=== PATIENT | male | born 1950 | race Hispanic/Latino ===

== ENCOUNTER 2021-12-22 13:00 | Inpatient (IN) | payer OTHER ==
[~2021-12-22] VITALS: Ht 175.3 cm; Wt 95.7 kg
[2022-01-06 09:42] LABS: BASOPHILS % (AUTO) 0.7 % (0.0-5.0); HEMATOCRIT 46.3 % (36-48); LYMPHOCYTES % (AUTO) 33.6 % (21.0-51.0); MEAN CORPUSCULAR HEMOGLOBIN 29.4 pg (27.0-33.0); MEAN CORPUSCULAR HGB CONC 32.4 g/dL (32.0-36.0); MEAN CORPUSCULAR VOLUME 90.8 fL (79-99); MONOCYTES % (AUTO) 14.2 % (3.0-13.0); PLATELET COUNT (AUTO) 184 K/uL (130-400); RED CELL DISTRIBUTION WIDTH 13.9 % (11.0-15.5); WHITE BLOOD COUNT (AUTO) 5.5 K/uL (4.8-10.8)
[2022-01-06 09:47] LABS: APPEARANCE,URINE Clear (CLEAR); BILIRUBIN,URINE Negative (NEGATIVE); COLOR,URINE Yellow (YELLOW); GLUCOSE, URINE (UA) Negative (NEGATIVE); KETONES,URINE Negative (NEGATIVE); LEUKOCYTE ESTERASE ,URINE Negative (NEGATIVE); NITRATE,URINE Negative (NEGATIVE); OCCULT BLOOD,URINE Negative (NEGATIVE); PH,URINE 5.5 (5.0-8.0); PROTEIN,URINE Negative (NEGATIVE); UROBILINOGEN,URINE 0.2 mg/dL (0.2-1.0)
[2022-01-06 09:56] LABS: CREATININE 1.4 mg/dL (0.5-1.5); POTASSIUM 4.3 mmol/L (3.5-5.1)
[2022-01-06 09:57] LABS: INR 0.94 (0.85-1.15); PROTHROMBIN TIME 10.3 SEC (9.6-11.6)
[2022-01-07 10:36] VITALS: BP 159/76
[2022-01-07] MEDS ORDERED: METF-446 PO (10:57)
[2022-01-07] MEDS ORDERED: CETI10TA57 PO (10:57)
[2022-01-07] MEDS ORDERED: LEVO175T9 PO (10:57)
[2022-01-07] MEDS ORDERED: ATOR40TA69 PO (10:57)
[2022-01-07] MEDS ORDERED: LISI30TA4 PO (10:57)
[2022-01-07] MEDS ORDERED: METF-444 PO (10:57)
[2022-01-08] VITALS (21 sets, daily range): BP systolic 90–146; BP diastolic 56–93
[2022-01-08] MEDS ORDERED: CEFAZOLIN SODIUM 1 GM VIAL IVP SCH (06:00)
[2022-01-08] MEDS ORDERED: 0.9%NACL 1000ML 1,000 ML IV ONE (12:10)
[2022-01-08] MEDS ORDERED: CLINDAMYCIN IVPB 900MG/50ML 50 ML IV ONE (12:10)
[2022-01-08] MEDS ORDERED: METOCLOPRAMIDE 10 MG/2 ML VIAL ONE ×2 (15:50→21:27)
[2022-01-08] MEDS ORDERED: ACETAMINOPHEN 500 MG TABLET ONE (15:51)
[2022-01-08] MEDS ORDERED: CELECOXIB 200 MG CAP ONE (15:51)
[2022-01-08] MEDS ORDERED: KETOROLAC 15MG/ML VIAL (15MG/ML) ONE (15:51)
[2022-01-08] MEDS ORDERED: ROPIVACAINE 0.5% 5MG/ML 30ML IJ ONE (17:01)
[2022-01-08] MEDS ORDERED: SUCCINYLCHOLINE CHLORIDE 20 MG/ML 10 ML VIAL ONE (17:04)
[2022-01-08] MEDS ORDERED: ROCURONIUM 10MG/1ML SYR 10 MG/ML ML ONE ×3 (17:05→18:58)
[2022-01-08] MEDS ORDERED: PROPOFOL 10 MG/ML 20ML VIAL IV ONE (17:05)
[2022-01-08] MEDS ORDERED: MIDAZOLAM HCL 1 MG/ML 2ML VIAL ONE (17:05)
[2022-01-08] MEDS ORDERED: FENTANYL CITRATE PF 50 MCG/1 ML 2ML VIAL ONE (17:05)
[2022-01-08] MEDS ORDERED: GLYCOPYRROLATE 1 MG/5 ML SYRINGE ONE (17:12)
[2022-01-08] MEDS ORDERED: TRANEXAMIC ACID 1000MG/10ML ONE ×2 (17:24→20:54)
[2022-01-08] MEDS ORDERED: VANCOMYCIN 1G VIAL ONE (17:24)
[2022-01-08] MEDS ORDERED: VANCOMYCIN 1G VIAL IRRIG ONE (18:17)
[2022-01-08] MEDS ORDERED: EPHEDRINE SULFATE 50 MG/ML AMPULE ONE (19:21)
[2022-01-08] MEDS ORDERED: NEOSTIGMINE 5MG/5ML SYR IV ONE (20:28)
[2022-01-08] MEDS ORDERED: FE FUMARATE/FA/MV, MIN COMB#15 1 TAB PO PRN (20:30)
[2022-01-08] MEDS ORDERED: KCL 20 MEQ ERTAB PO PRN (20:30)
[2022-01-08] MEDS ORDERED: 0.9% NACL 250ML IV SCH (20:30)
[2022-01-08] MEDS ORDERED: OXYCODONE HCL 5 MG TAB PO PRN ×2 (20:30)
[2022-01-08] MEDS ORDERED: KETOROLAC 15MG/ML VIAL (15MG/ML) IV PRN (20:30)
[2022-01-08] MEDS ORDERED: LIDOCAINE HCL-MPF 1% 2ML VIAL IV PRN (20:30)
[2022-01-08] MEDS ORDERED: 0.9%NACL 1000ML 1,000 ML IV SCH (20:30)
[2022-01-08] MEDS ORDERED: VANCOMYCIN 1G VIAL IVPB SCH (20:30)
[2022-01-08] MEDS ORDERED: POTASSIUM CHLORIDE 20MEQ/100ML 100 ML IV PRN (20:30)
[2022-01-08] MEDS ORDERED: CALCIUM CARB 500MG PO PRN (20:30)
[2022-01-08] MEDS ORDERED: DiphenhydrAMINE HCL 50 MG/ML VIAL IVP PRN (20:30)
[2022-01-08] MEDS ORDERED: POTASSIUM CHLORIDE 10% ELIXIR 20 MEQ/15 ML UDCUP PO PRN (20:30)
[2022-01-08] MEDS ORDERED: ONDANSETRON 4MG INJ IVP PRN (20:30)
[2022-01-08] MEDS ORDERED: ACETAMINOPHEN 500 MG TABLET PO SCH (20:30)
[2022-01-08] MEDS: PREGABALIN 25 MG CAP PO SCH (21:00)
[2022-01-08] MEDS: INSULIN HUMULIN R 100 UNIT/ML 3ML SQ SCH (21:00)
[2022-01-08] MEDS ORDERED: VANCOMYCIN 1G/250ML KIT 250 ML IV SCH (21:00)
[2022-01-09] VITALS (8 sets, daily range): BP systolic 93–124; BP diastolic 59–72
[2022-01-09] MEDS: CLINDAMYCIN IVPB 900MG/50ML 50 ML IV SCH ×2 (01:25→08:52)
[2022-01-09] MEDS: CELECOXIB 200 MG CAP PO SCH ×3 (01:26→20:12)
[2022-01-09] MEDS: ASPIRIN 81 MG EC TAB PO SCH ×3 (01:26→20:11)
[2022-01-09 04:40] LABS: MEAN CORPUSCULAR HEMOGLOBIN 29.9 pg (27.0-33.0); MEAN CORPUSCULAR VOLUME 93.5 fL (79-99); RED BLOOD CELL COUNT(AUTO) 4.28 MIL/uL (4.50-6.20); RED CELL DISTRIBUTION WIDTH 13.7 % (11.0-15.5); WHITE BLOOD COUNT (AUTO) 9.5 K/uL (4.8-10.8)
[2022-01-09 05:01] LABS: CREATININE 1.4 mg/dL (0.5-1.5); POTASSIUM 4.1 mmol/L (3.5-5.1)
[2022-01-09] MEDS ORDERED: 0.9% NACL 250ML 250 ML ONE ×2 (06:41→17:37)
[2022-01-09] MEDS: LEVOTHYROXINE 150 MCG TABLET PO SCH (06:45)
[2022-01-09] MEDS: LEVOTHYROXINE 25 MCG TABLET PO SCH (06:45)
[2022-01-09] MEDS: VANCOMYCIN 1G/250ML KIT 250 ML IV SCH ×2 (06:46→17:51)
[2022-01-09] MEDS: INSULIN HUMULIN R 100 UNIT/ML 3ML SQ SCH ×4 (06:51→20:34)
[2022-01-09] MEDS ORDERED: NON-FORMULARY MEDICATION 1 EACH (Levothyroxine Sodium 175 MCG) PO SCH (07:30)
[2022-01-09] MEDS: TRAMADOL HCL 50 MG TABLET PO PRN ×2 (08:30→16:44)
[2022-01-09] MEDS: POLYETHYLENE GLYCOL 3350 17 GM POWD.PACK PO SCH (08:50)
[2022-01-09] MEDS: LISINOPRIL 10 MG TABLET PO SCH (08:50)
[2022-01-09] MEDS: PREGABALIN 25 MG CAP PO SCH ×2 (08:51→20:11)
[2022-01-09] MEDS: METFORMIN HCL 500 MG TABLET PO SCH (08:51)
[2022-01-09] MEDS: CETIRIZINE HCL 5 MG TABLET PO SCH (08:51)
[2022-01-09] MEDS: ATORVASTATIN 40 MG TABLET PO SCH (08:51)
[2022-01-09] MEDS: ACETAMINOPHEN 500 MG TABLET PO SCH ×2 (08:52→17:55)
[2022-01-09] MEDS ORDERED: NON-FORMULARY MEDICATION 1 EACH (Cetirizine HCl 10 MG) PO SCH (09:00)
[2022-01-09] MEDS ORDERED: NON-FORMULARY MEDICATION 1 EACH (Lisinopril 30 MG) PO SCH (09:00)
[2022-01-09] MEDS ORDERED: HYDR-4060 PO (12:58)
[2022-01-09] MEDS ORDERED: METFORMIN HCL 500 MG TABLET PO SCH (21:00)
[2022-01-10] VITALS: BP 116/66
[2022-01-10] MEDS: ACETAMINOPHEN 500 MG TABLET PO SCH ×2 (01:05→09:49)
[2022-01-10 04:00] VITALS: BP 96/58
[2022-01-10] MEDS: INSULIN HUMULIN R 100 UNIT/ML 3ML SQ SCH ×3 (05:46→16:30)
[2022-01-10] MEDS: LEVOTHYROXINE 150 MCG TABLET PO SCH (05:59)
[2022-01-10] MEDS: LEVOTHYROXINE 25 MCG TABLET PO SCH (06:00)
[2022-01-10 07:56] VITALS: BP 131/65
[2022-01-10] MEDS: PREGABALIN 25 MG CAP PO SCH (09:47)
[2022-01-10] MEDS: POLYETHYLENE GLYCOL 3350 17 GM POWD.PACK PO SCH (09:47)
[2022-01-10] MEDS: ASPIRIN 81 MG EC TAB PO SCH (09:48)
[2022-01-10] MEDS: CELECOXIB 200 MG CAP PO SCH (09:48)
[2022-01-10] MEDS: LISINOPRIL 10 MG TABLET PO SCH (09:48)
[2022-01-10] MEDS: ATORVASTATIN 40 MG TABLET PO SCH (09:48)
[2022-01-10] MEDS: CETIRIZINE HCL 5 MG TABLET PO SCH (09:48)
[2022-01-10] MEDS: METFORMIN HCL 500 MG TABLET PO SCH (09:48)
[2022-01-10 11:34] VITALS: BP 131/78
[2022-01-11] MEDS ORDERED: BISACODYL 10 MG SUPP.RECT RC PRN (20:30)
== END 2022-01-10 17:45 | disposition home or self-care (01) | DRG 483 ==
LOC: EDSEX 01-08 11:51 → DAHIP 01-08 11:51 → 4AH 01-08 21:27
PROVIDERS: ADMIT Orthopaedic Surgery; ATTEND Orthopaedic Surgery
PROC: 0RPJ0JZ Removal of Synthetic Substitute from Right Shoulder Joint, Open Approach (ICD-10-PCS; principal; 2022-01-09)
PROC: 0RRJ0JZ Replacement of Right Shoulder Joint with Synthetic Substitute, Open Approach (ICD-10-PCS; 2022-01-09)
PROC: 3E0T3BZ Introduction of Anesthetic Agent into Peripheral Nerves and Plexi, Percutaneous Approach (ICD-10-PCS; 2022-01-09)
DX: M75.101 Unspecified rotator cuff tear or rupture of right shoulder, not specified as traumatic (principal); M12.811 Other specific arthropathies, not elsewhere classified, right shoulder; E78.00 Pure hypercholesterolemia, unspecified; I10 Essential (primary) hypertension; Z96.611 Presence of right artificial shoulder joint
CPT/HCPCS: 36415; 73030; 80048; 81003; 82948; 85025; 85027; 85610; 87088; 87426; 87641; 97039; A4565; C1776; G0378; J0330; J0690; J1815; J1885; J2250; J2405; J2704; J2710; J2765; J2795; J3010; J3370; J3490; J7030; J7050